=== PATIENT | female | born 1975 | race Caucasian/White ===

== ENCOUNTER 2016-10-01 11:16 | Emergency (ER) | payer OTHER ==
[2016-10-01] MEDS ORDERED: Ondansetron ODT 4 MG TAB ONE (12:24)
[2016-10-01] MEDS ORDERED: Morphine Sulfate 2 MG/ML SYRINGE ONE (12:24)
[2016-10-01] MEDS ORDERED: Clindamycin 150 MG CAP ONE (12:24)
--- NOTE | 2016-10-01 12:32 | ERRECORD ---
[facility] EMERGENCY RECORD HPI EAR PAIN (12:22 LLDO) CHIEF COMPLAINT: Patient presents for evaluation of pain, to the right ear, Patient presents for evaluation of really is not jaw radiating to ear, but the other way around. pt has significant right otitis externa. pain to touch ear and pain rad to right side of face and down rioght side of neck. HISTORIAN: History provided by patient. LOCATION: Symptoms are localized. QUALITY: Pain is dull in nature, described as aching. SEVERITY: Maximum severity of symptoms severe, Currently symptoms are severe. TIME COURSE: Sudden onset of symptoms, There has been no change in the patient's symptoms over time, are constant. ASSOCIATED WITH: Associated with drainage, No associated upper respiratory infection, just saw dentist. teeth okay. EXACERBATED BY: Patient's condition relieved by touching ear. RELIEVED BY: Patient's condition relieved by nothing. ROS (12:26 LLDO) CONSTITUTIONAL: Negative constitutional review of systems. ENT: Historian reports otalgia, reports otorrhea. NOTES: All systems reviewed, negative except as described above. PAST MEDICAL HISTORY MEDICAL HISTORY: Past medical history includes history of diabetes, Type II. (11:25 SFRE) FEMALE SURGICAL HISTORY: Surgical history of thyroidectomy. (11:25 SFRE) NOTES: Nursing records reviewed, Agree with nursing records, Medication list reviewed. (12:29 LLDO) KNOWN ALLERGIES Keflex Penicillins CURRENT MEDICATIONS No recorded medications VITAL SIGNS (11:20 SFRE) VITAL SIGNS: BP: 150/92, Pulse: 112, Resp: 18, Temp: 98.6 (Tympanic), Pain: 9 (Pressure), O2 sat: 98 on Room Air, Time: 10/01/2016 11:20. PHYSICAL EXAM (12:26 LLDO) CONSTITUTIONAL: Patient afebrile, Pulse, tachycardic, 112, Blood pressure, BP ELEVATED, Respiratory rate normal, Patient appears, uncomfortable, Patient appears in &a-1R&a+25V*p+0X*w6273M*c202B*c15G*c2P*p-0X&a-25V&a+1R Name: Ирина Martin : 1975 F41 MedRec: [id number] AcctNum: [id number] Prepared: Gwen Oct 01, 2016 12:48 by Interface Page 1 of 3 pMD [facility] EMERGENCY RECORD pain, in severe pain distress, Patient alert and oriented to person, place and time. ENT: Ear exam included findings of, left external ear normal, right external ear with purulent drainage, right external ear with erythema, right external ear with swelling, right external ear with otitis externa, tympanic membrane normal on the left, can't see right TM, Nose exam normal, Pharynx exam normal, Uvula exam normal, Tonsil exam normal, Mouth exam normal, Sinus exam included findings of frontal sinuses normal, maxillary sinuses normal. NECK: Neck exam included findings of normal range of motion, Trachea midline, Thyroid normal, no meningeal signs, Cervical adenopathy, diffuse, multiple nodes, tender, swollen, Tenderness, right side of neck. RESPIRATORY CHEST: Respiratory exam included findings of no respiratory distress, Breath sounds clear. MEDICATION ADMINISTRATION SUMMARY Drug Name: Duramorph (PF), Dose Ordered: 6 mg, Route: Intramuscular, Status: Given, Time: 12:35 10/01/2016, Drug Name: Zofran ODT, Dose Ordered: 8 mg, Route: Sublingual, Status: Given, Time: 12:34 10/01/2016, Drug Name: clindamycin HCl, Dose Ordered: 300 mg, Route: Oral, Status: Given, Time: 12:29 10/01/2016, Detailed record available in Medication Service section. 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 PRESCRIPTION (12:09 LLDO) Cortisporin otic: SOLUTION, NON-ORAL : 3.5 mg/mL-10,000 unit/mL-1 % : OTIC : Quantity: 3-4 Unit: Drps Route: OTIC Schedule: 4 times a day Dispense: 5ML May substitute. Refills: 1 . NOTES: No Refills. clindamycin HCl: CAPSULE (HARD, SOFT, ETC.) : 300 mg : ORAL : Quantity: 1 Unit: tab(s) Route: ORAL Schedule: 4 times a day Dispense: 40 May substitute. Refills: No Refills . NOTES: ^s=No Refills No Refills. Tylenol-Codeine #3: TABLET : 300 mg-30 mg : ORAL : Quantity: 1-2 Unit: tab(s) Route: ORAL Schedule: every 4 hours prn Dispense: 30 Unit: tab(s) May substitute. Refills: No Refills . &a-1R&a+25V*p+0X*[id number]*c202B*c15G*c2P*p-0X&a-25V&a+1R Name: Ирина Martin : 1975 F41 MedRec: [id number] AcctNum: [id number] Prepared: Gwen Oct 01, 2016 12:48 by Interface Page 2 of 3 pMD [facility] EMERGENCY RECORD NOTES: ^s=^s=No Refills No Refills No Refills. DISPOSITION PATIENT: Disposition Type: Discharge, Disposition: *Discharge Home. (12:08 LLDO) Patient left the department. (12:45 SFRE) Yeager: LLDO=MD Dirk, Maxx SFRE=FARAZ Montana, Alejandra &a-1R&a+25V*p+0X*n8974K*c202B*c15G*c2P*p-0X&a-25V&a+1R Name: Ирина Martin : 1975 F41 MedRec: [id number] AcctNum: [id number] Prepared: Gwen Oct 01, 2016 12:48 by Interface Page 3 of 3 pMD [facility]
--- NOTE | 2016-10-01 12:38 | PICIS ---
[facility] EMERGENCY RECORD TRIAGE ([place] Oct 01, 2016 11:23 SFRE) PATIENT: NAME: Ирина Martin, AGE: 41, GENDER: female, : Yessica 1975, TIME OF GREET: SunOct 01, 2016 11:17, ECODE BILLING MAP: [facility], Zip Code: [address], KG WEIGHT: 56.70, PHONE: , , , PERSON ID: [id number], PCP: OOT. ([place] Oct 01, 2016 11:23 SFRE) TRIAGE NOTES: UPPER JAW PAIN THAT RADIATES TO EAR. ([place] Oct 01, 2016 11:23 SFRE) COMPLAINT: RT JAW & EAR PAIN. ([place] Oct 01, 2016 11:23 SFRE) ADMISSION: URGENCY: 4 Non Urgent, ADMISSION SOURCE: Home, TRANSPORT: Walk-in, BED: ED -03. ([place] Oct 01, 2016 11:23 SFRE) PROVIDERS: TRIAGE NURSE: Alejandra Montana RN. ([place] Oct 01, 2016 11:23 SFRE) VITAL SIGNS: BP 150/92, Pulse 112, Resp 18, Temp 98.6, (Tympanic), Pain 9, (Pressure), O2 Sat 98, on Room Air, Time 10/01/2016 11:20. (11:20 SFRE) KNOWN ALLERGIES Keflex Penicillins CURRENT MEDICATIONS No recorded medications VITAL SIGNS (11:20 SFRE) VITAL SIGNS: BP: 150/92, Pulse: 112, Resp: 18, Temp: 98.6 (Tympanic), Pain: 9 (Pressure), O2 sat: 98 on Room Air, Time: 10/01/2016 11:20. ORDER DETAILS Order Name: Culture & GS, Bacterial/Wound, Status: Active, Time: 12:11 10/01/2016, User: JOSHUA, - Ordered for: MD Cavazos Lloyd, - Entered by: MD Cavazos Lloyd - [place] Oct 01, 2016 12:11, - Quantity: 1. MEDICATION ADMINISTRATION SUMMARY Drug Name: Duramorph (PF), Dose Ordered: 6 mg, Route: Intramuscular, Status: Given, Time: 12:35 10/01/2016, Drug Name: Zofran ODT, Dose Ordered: 8 mg, Route: Sublingual, Status: Given, Time: 12:34 10/01/2016, Drug Name: clindamycin HCl, Dose Ordered: 300 mg, Route: Oral, Status: Given, Time: 12:29 10/01/2016, Detailed record available in Medication Service section. MEDICATION SERVICE clindamycin HCl: Order: clindamycin HCl - Dose: 300 mg &a-1R&a+25V*p+0X*z3017J*c202B*c15G*c2P*p-0X&a-25V&a+1R Name: Ирина Martin : 1975 F41 MedRec: [id number] AcctNum: [id number] Prepared: Gwen Oct 01, 2016 12:54 by Interface Page 1 of 4 pMD [facility] EMERGENCY RECORD : Oral Schedule: Now Ordered by: Maxx Cavazos MD Entered by: MD Gwen Cheng Oct 01, 2016 12:05 , Acknowledged by: FARAZ Brumfield Oct 01, 2016 12:22 Documented as given by: FARAZ Brumfield Oct 01, 2016 12:29 Patient, Medication, Dose, Route and Time verified prior to administration. Site: Medication administered P.O., Correct patient, time, route, dose and medication confirmed prior to administration, Patient advised of actions and side-effects prior to administration, Allergies confirmed and medications reviewed prior to administration. Duramorph (PF): Order: Duramorph (PF) (morphine sulfate/preservative free) - Dose: 6 mg : Intramuscular Schedule: Now Ordered by: Maxx Cavazos MD Entered by: MD Gwen Cheng Oct 01, 2016 12:06 , Acknowledged by: FARAZ Brumfield Oct 01, 2016 12:22 Documented as given by: FARAZ Brumfield Oct 01, 2016 12:35 Patient, Medication, Dose, Route and Time verified prior to administration. Medication administered to right hip, Correct patient, time, route, dose and medication confirmed prior to administration, Patient advised of actions and side-effects prior to administration, Allergies confirmed and medications reviewed prior to administration. Zofran ODT: Order: Zofran ODT (ondansetron) - Dose: 8 mg : Sublingual Schedule: Now Ordered by: Maxx Cavazos MD Entered by: MD Gwen Cheng Oct 01, 2016 12:06 , Acknowledged by: FARAZ Brumfield Oct 01, 2016 12:22 Documented as given by: FARAZ Brumfield Oct 01, 2016 12:34 Patient, Medication, Dose, Route and Time verified prior to administration. Site: Medication administered S.L., Correct patient, time, route, dose and medication confirmed prior to administration, Patient advised of actions and side-effects prior to administration, Allergies confirmed and medications reviewed prior to administration. HPI EAR PAIN (12:22 LLDO) CHIEF COMPLAINT: Patient presents for evaluation of pain, to the right ear, Patient presents for evaluation of really is not jaw radiating to ear, but the other way around. pt has significant right otitis externa. pain to touch ear and pain rad to right side of face and down rioght side of neck. HISTORIAN: History provided by patient. LOCATION: Symptoms are localized. QUALITY: Pain is dull in nature, described as aching. SEVERITY: Maximum severity of symptoms severe, Currently symptoms are severe. TIME COURSE: &a-1R&a+25V*p+0X*w6289J*c202B*c15G*c2P*p-0X&a-25V&a+1R Name: Ирина Martin : 1975 F41 MedRec: [id number] AcctNum: [id number] Prepared: Gwen Oct 01, 2016 12:54 by Interface Page 2 of 4 pMD [facility] EMERGENCY RECORD Sudden onset of symptoms, There has been no change in the patient's symptoms over time, are constant. ASSOCIATED WITH: Associated with drainage, No associated upper respiratory infection, just saw dentist. teeth okay. EXACERBATED BY: Patient's condition relieved by touching ear. RELIEVED BY: Patient's condition relieved by nothing. ROS (12:26 LLDO) CONSTITUTIONAL: Negative constitutional review of systems. ENT: Historian reports otalgia, reports otorrhea. NOTES: All systems reviewed, negative except as described above. PAST MEDICAL HISTORY MEDICAL HISTORY: Past medical history includes history of diabetes, Type II. (11:25 SFRE) FEMALE SURGICAL HISTORY: Surgical history of thyroidectomy. (11:25 SFRE) NOTES: Nursing records reviewed, Agree with nursing records, Medication list reviewed. (12:29 LLDO) PHYSICAL EXAM (12:26 LLDO) CONSTITUTIONAL: Patient afebrile, Pulse, tachycardic, 112, Blood pressure, BP ELEVATED, Respiratory rate normal, Patient appears, uncomfortable, Patient appears in pain, in severe pain distress, Patient alert and oriented to person, place and time. ENT: Ear exam included findings of, left external ear normal, right external ear with purulent drainage, right external ear with erythema, right external ear with swelling, right external ear with otitis externa, tympanic membrane normal on the left, can't see right TM, Nose exam normal, Pharynx exam normal, Uvula exam normal, Tonsil exam normal, Mouth exam normal, Sinus exam included findings of frontal sinuses normal, maxillary sinuses normal. NECK: Neck exam included findings of normal range of motion, Trachea midline, Thyroid normal, no meningeal signs, Cervical adenopathy, diffuse, multiple nodes, tender, swollen, Tenderness, right side of neck. RESPIRATORY CHEST: Respiratory exam included findings of no respiratory distress, Breath sounds clear. EVENTS TRANSFER: Triage to Emergency Main ED -03. (Gwen Oct 01, 2016 11:23 SFRE) Removed from Emergency Main ED -03. 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 DISPOSITION PATIENT: Disposition Type: Discharge, Disposition: *Discharge Home. (12:08 LLDO) Patient left the department. (12:45 SFRE) INSTRUCTION (12:10 LLDO) DISCHARGE: OTITIS EXTERNA ADULT. FOLLOWUP: Follow up with Primary Care Physician in 5 days. SPECIAL: Follow-up with your PCP. PRESCRIPTION (12:09 LLDO) Cortisporin otic: SOLUTION, NON-ORAL : 3.5 mg/mL-10,000 unit/mL-1 % : OTIC : Quantity: 3-4 Unit: Drps Route: OTIC Schedule: 4 times a day Dispense: 5ML May substitute. Refills: 1 . NOTES: No Refills. clindamycin HCl: CAPSULE (HARD, SOFT, ETC.) : 300 mg : ORAL : Quantity: 1 Unit: tab(s) Route: ORAL Schedule: 4 times a day Dispense: 40 May substitute. Refills: No Refills . NOTES: ^s=No Refills No Refills. Tylenol-Codeine #3: TABLET : 300 mg-30 mg : ORAL : Quantity: 1-2 Unit: tab(s) Route: ORAL Schedule: every 4 hours prn Dispense: 30 Unit: tab(s) May substitute. Refills: No Refills . NOTES: ^s=^s=No Refills No Refills No Refills. ADMIN (12:29 [facility]) DIGITAL SIGNATURE: MD Cavazos Lloyd. Yeager: JOSHUA=MD Cavazos Lloyd SFRE=FARAZ Montana, Alejandra &a-1R&a+25V*p+0X*g1394J*c202B*c15G*c2P*p-0X&a-25V&a+1R Name: Ирина Martin : 1975 F41 MedRec: [id number] AcctNum: [id number] Prepared: Gwen Oct 01, 2016 12:54 by Interface Page 4 of 4 pMD [facility] MEDICATION RECONCILIATION You were seen in the Emergency Department on: Gwen Oct 01, 2016 KNOWN ALLERGIES Keflex Penicillins MEDICATIONS GIVEN WHILE IN THE EMERGENCY DEPARTMENT clindamycin HCl - Dose: 300 milligram(s) : Oral Duramorph (PF) (morphine sulfate/preservative free) - Dose: 6 milligram(s) : Intramuscular Zofran ODT (ondansetron) - Dose: 8 milligram(s) : Sublingual Notes from the emergency department Reviewed with patient PRESCRIPTIONS (3) Printed (3) Cortisporin otic : SOLUTION, NON-ORAL : 3.5 mg/mL-10,000 unit/mL-1 % : OTIC Quantity: 3-4, Unit: Drops, Route: OTIC, Schedule: 4 times a day, Dispense: 5ML clindamycin HCl : CAPSULE (HARD, SOFT, ETC.) : 300 mg : ORAL Quantity: 1, Unit: tab(s), Route: ORAL, Schedule: 4 times a day, Dispense: 40 &a-1R&a+25V*p+0X*h6699R*c202B*c15G*c2P*p-0X&a-25V&a+1R Name: Ирина Martin Gee : 1975 F41 MedRec: [id number] AcctNum: [id number] Prepared: Gwen Oct 01, 2016 12:54 by Interface pMD [facility]
== END 2016-10-01 12:47 | disposition home or self-care (01) ==
LOC: MADERS 11:16
DX: H60.91 Unspecified otitis externa, right ear (principal); E11.9 Type 2 diabetes mellitus without complications
CPT/HCPCS: 87070; 87077; 87186; 87205; 96372; J2270; Q0162

== ENCOUNTER 2016-11-17 08:57 | Outpatient (CLI) | payer OTHER ==
[2016-11-17 09:15] LABS: #Lymphocytes 0.6 thou/uL (1.20-3.40); #Monocytes 0.1 thou/uL (0.11-0.59); #Neutrophils 8.9 thou/uL (1.40-6.50); %Basophils 0.3 % (0.0-1.0); %Lymphocytes 6.6 % (21.0-51.0); %Monocytes 0.6 % (0.0-10.0); Hemoglobin 15.8 g/dL (12.0-16.0); White Blood Cell (WBC) Count 9.7 thou/uL (4.8-10.8)
[2016-11-17 09:42] LABS: Mean Corpuscular HGB CONC 33.2 g/dL (32.0-36.0); Mean Corpuscular Hemoglobin 28.6 pg (27.0-31.0); Mean Corpuscular Volume 86.4 fL (81.0-99.0); Mean Platelet Volume 9.7 fL (7.4-10.4); Platelet Count 256 thou/uL (130-400); RBC Distribution Width 11.5 % (11.5-14.5); Red Blood Cell (RBC) Count 5.49 mill/uL (4.20-5.40)
[2016-11-17 09:43] LABS: Manual Diff?? YES
[2016-11-17 09:45] LABS: %Neutrophils 93.2 % (42.0-75.0)
[2016-11-17 09:52] LABS: ALT (SGPT) 97 U/L (0-55); AST (SGOT) 24 U/L (5-34); Albumin 4.4 g/dL (3.5-5.0); Alkaline Phosphatase 105 U/L (40-150); Anion Gap 22 mmol/L (10-20); BUN (Urea Nitrogen) 18 mg/dL (7.0-18.7); Bilirubin, Total 0.5 mg/dL (0.2-1.2); Calc. Creatinine Clearance 0 mL/min (70-130); Calcium 9.8 mg/dL (7.8-10.44); Carbon Dioxide 19 mmol/L (22-29); Chloride 98 mmol/L (98-107); Estimated GFR-MDRD 67; Globulin 3.1 g/dL (2.4-3.5); Potassium 4.9 mmol/L (3.5-5.1); Protein, Total 7.5 g/dL (6.0-8.3); Sodium 134 mmol/L (136-145)
[2016-11-17 09:59] LABS: Glucose 323 mg/dL (70-105)
[2016-11-17] MEDS ORDERED: Iopamidol 370 76% 100 ML VIAL ONE (10:44)
--- NOTE | 2016-11-17 12:15 | CT ---
NECK CT WITH CONTRAST CLINICAL HISTORY: Right-sided neck pain and swelling, progressive. FINDINGS: The regional subcutaneous tissues reveal no evidence of abscess or significant edema. No cervical c mari adenopathy. There is a borderline-sized, right-sided submental lymph node, which measures 7 mm in short axis dimension. There is a grouping of nodularity at the inferior aspect of the right par otid gland, which may relate to a component of heterotopic glandular tissue or, alternatively, a clu stering of lymph nodes. Mild reticulation of the adjacent dermal fat is present. There is effaceme nt of the right piriform sinus, nonspecific. The epiglottis and pre-epiglottis space are maintained . The palatine tonsils are unremarkable. There is no intrinsic acute pathology of the salivary gla nds. There is predominant fatty replacement of the left parotid gland. The thyroid gland is not vi sualized. IMPRESSION: 1. Effacement of the right piriform sinus. This may relate to benign apposition of the mucosal seth faces. Recommend direct visualization to exclude the possibility of an intrinsic mucosal lesion. 2. Nonvisualization of the thyroid gland. Correlate clinically. 3. A few borderline-sized lymph nodes of the submental and periparotid region of the right neck wit h mild surrounding fat stranding. This could relate to a component of adenitis or reactive change r elated to right parotitis. Imaging followup may be obtained to confirm resolution. POS: [place]
== END 2016-11-17 08:58 | disposition home or self-care (01) ==
LOC: MADCT 08:57
PROVIDERS: ATTEND Otolaryngology Facial Plastic Surgery
DX: Z01.812 Encounter for preprocedural laboratory examination (principal)
CPT/HCPCS: 36415; 70491; 80053; 85025

== ENCOUNTER 2017-01-16 12:25 | Emergency (ER) | payer OTHER ==
[~2017-01-16 12:25] MED LIST: Sodium Chloride 0.9% 1,000 ML BAG ONE
[2017-01-16] MEDS ORDERED: Ondansetron HCl/PF 4 MG/2 ML Vial ONE (13:15)
[2017-01-16 13:18] LABS: Bilirubin Negative (Negative); Blood, Urine Negative (Negative); Clarity Clear (Clear); Glucose, Urine (Dipstick) >=1000 mg/dL (Negative); Leukocyte Negative (Negative); Nitrite Negative (Negative); Protein, Urine (Dipstick) Negative (Neg-Trace); Urobilinogen 0.2 mg/dL (0.2-1.0)
[2017-01-16 13:19] LABS: RBC/HPF 0-3 HPF (0-3)
[2017-01-16 13:20] LABS: Bacteria/HPF Rare-Few HPF (None Seen); WBC/HPF None Seen HPF (0-3)
[2017-01-16 13:23] LABS: #Basophils 0.1 thou/uL (0.0-0.2); #Lymphocytes 2.9 thou/uL (1.20-3.40); #Monocytes 0.6 thou/uL (0.11-0.59); #Neutrophils 6.8 thou/uL (1.40-6.50); %Basophils 1.4 % (0.0-1.0); %Eosinophils 0.3 % (0.0-10.0); %Lymphocytes 27.8 % (21.0-51.0); %Monocytes 5.3 % (0.0-10.0); %Neutrophils 65.1 % (42.0-75.0); Hemoglobin 15.4 g/dL (12.0-16.0); Mean Corpuscular HGB CONC 34.3 g/dL (32.0-36.0); Mean Corpuscular Hemoglobin 29.7 pg (27.0-31.0); Mean Corpuscular Volume 86.6 fl (81.0-99.0); Mean Platelet Volume 10.4 fL (7.4-10.4); Platelet Count 193 thou/uL (130-400); RBC Distribution Width 11.4 % (11.5-14.5); Red Blood Cell (RBC) Count 5.18 mill/uL (4.20-5.40); White Blood Cell (WBC) Count 10.5 thou/uL (4.8-10.8)
[2017-01-16 13:30] LABS: ALT (SGPT) 13 U/L (8-55); AST (SGOT) 11 U/L (5-34); Albumin 4.3 g/dL (3.5-5.0); Alkaline Phosphatase 48 U/L (40-150); Anion Gap 14 mmol/L (10-20); Bilirubin, Total 0.4 mg/dL (0.2-1.2); Calc. Creatinine Clearance 0 mL/min (70-130); Calcium 9.3 mg/dL (7.8-10.44); Carbon Dioxide 23 mmol/L (22-29); Chloride 101 mmol/L (98-107); Estimated GFR-MDRD 74; Globulin 2.7 g/dL (2.4-3.5); Glucose 370 mg/dL (70-105); Magnesium 1.9 mg/dL (1.6-2.6); Potassium 4.4 mmol/L (3.5-5.1); Sodium 134 mmol/L (136-145)
[2017-01-16 13:39] LABS: BUN (Urea Nitrogen) 13 mg/dL (7.0-18.7)
[2017-01-16 15:19] LABS: Base Excess -2.4 mEq/L (-2 - +2)
[2017-01-16 15:20] LABS: Hemoglobin (Hb) 13.8 g/dL (11.7-15.5)
[2017-01-17 17:34] LABS: HBSAg Index 0.48 S/CO (0-0.99); HIV (1/2) Antibody/Antigen Non-Reactive (NonReactive); HIV 1/2 INDEX 0.21 S/CO (<1.00); Hep B Surf Ag Non-Reactive S/CO (NonReactive); Hep C IgG Ab Non-Reactive (NonReactive); Hep C Index 0.11 S/CO (0-0.79)
== END 2017-01-16 15:30 | disposition home or self-care (01) ==
LOC: MADERS 12:25
DX: E11.65 Type 2 diabetes mellitus with hyperglycemia (principal); E03.9 Hypothyroidism, unspecified; Z79.84 Long term (current) use of oral hypoglycemic drugs; Z79.899 Other long term (current) drug therapy
CPT/HCPCS: 36416; 80053; 81001; 82805; 83735; 85025; 86803; 87340; 87389; 96361; 96374; J2405; J7050